=== PATIENT | female | born 2000 | race Caucasian/White ===

== ENCOUNTER 2024-10-28 20:39 | Emergency (ER) | payer OTHER, SELFPAY ==
[2024-10-28 20:41] VITALS: BP 154/87; PULSE 111; RESP 18; TEMP 36.3; O2SAT 98; BMI 33.5
[2024-10-28] MEDS: ONDANSETRON 4 MG/2 ML INJ IV (20:55)
[2024-10-28 21:23] LABS: Alanine Aminotransferase 30 IU/L (<35); Albumin 4.6 g/dL (3.5-5.0); Albumin Globulin Ratio 1.1 (1.0-2.8); Alkaline Phosphatase 61 U/L (38-126); Aspartate Aminotransferase 31 IU/L (14-36); BUN Creatinine Ratio 14.3 (6-22); Bilirubin Total 0.5 mg/dL (0.2-1.3); Blood Urea Nitrogen 10 mg/dL (7-17); Calcium 9.5 mg/dL (8.4-10.2); Carbon Dioxide 21 mmol/L (22-32); Chloride 104 mmol/L (98-107); Estimated Glomerular Filt Rate > 60 mL/min (>60); Globulin 4.2 g/dL (1.7-4.1); Glucose 97 mg/dL (70-100); HEMOLYSIS < 15 (0-50); Lipase 68 U/L (23-300); Potassium 4.1 mmol/L (3.4-5.1); Sodium 136 mmol/L (137-145); Total Protein 8.8 g/dL (6.3-8.2)
[2024-10-28 21:31] LABS: Add Manual Diff / Slide Review NO; Basophils Absolute Auto 100 /uL (0-100); Basophils Percent Auto 0.3 % (0-2); Eosinophils Absolute Auto 100 /uL (0-450); Eosinophils Percent Auto 0.5 % (2-4); Hematocrit 43.7 % (36-46); Hemoglobin 14.4 g/dL (12.0-16.0); Lymphocytes Absolute Auto 2000 /uL (1100-4500); Lymphocytes Percent Auto 12.6 % (25-40); Mean Corpuscular HGB Conc 32.9 % (30-36); Mean Corpuscular Hemoglobin 26.9 PG (26-34); Mean Corpuscular Volume 81.7 fL (80-100); Monocytes Absolute Auto 700 /uL (0-900); Monocytes Percent Auto 4.2 % (3-14); Neutrophils Absolute Auto 12900 /uL (1500-7000); Neutrophils Percent Auto 82.4 % (50-75); Platelet Count 397 X10^3/uL (150-400); Red Blood Cell Count 5.34 X10^6/uL (4.0-5.2); Red Cell Distribution Width 14.7 % (11.6-14.8); White Blood Cell Count 15.7 X10^3/uL (4.5-11.0)
[2024-10-28 22:22] LABS: Appearance Urine UA CLEAR; Bilirubin Urine UA 1+ (NEGATIVE); Color Urine UA YELLOW; Glucose Urine UA NEGATIVE (Negative); Ketones Urine UA TRACE (NEGATIVE); Leukocyte Esterase Urine UA NEGATIVE (NEGATIVE); Nitrite Urine UA NEGATIVE (Negative); Occult Blood Urine UA NEGATIVE (Negative); Protein Urine UA TRACE (Negative); Specific Gravity Urine UA 1.025 (1.000-1.035); Urobilinogen Urine UA 0.2 E.U./dL (0.2)
[2024-10-28 22:23] LABS: Ictotest Urine Negative (Negative)
[2024-10-28 22:25] LABS: Urine Volume 10mL (spun)
[2024-10-28 22:34] LABS: Bacteria Urine Few (2-10); Culture Indicated Urine Cult Not Indicated; Hyaline Casts Urine 0-1/LPF; RBC Urine None Seen (0-5/HPF); Squamous Epithelial Cell Urine 0-1 /HPF (0-5/HPF); WBC Urine None Seen (0-5/HPF)
--- NOTE | 2024-10-28 23:13 | DI.CT.S_ITS ---
PROCEDURE: CT ABDOMEN PELVIS W CON INDICATIONS: N/V/MIDEPIGASTRIC PN, HX ULCERATIVE COLITIS TECHNIQUE: After the administration of intravenous contrast, axial sections acquired from the lung bases to the pubic symphysis. Coronal and sagittal reformats were performed. For radiation dose reduction, the following was used: automated exposure control, adjustment of mA and/or kV according to patient size. COMPARISON: None. FINDINGS: Image quality: Diagnostic. Lower Chest: No significant findings. ABDOMEN: Liver: No solid mass. Gallbladder: No radiopaque gallstones or wall thickening. Biliary ducts: No biliary dilation. Pancreas: No ductal dilation. Spleen: Size is within normal limits. Adrenal Glands: No adrenal nodules. Kidneys and Ureters: No hydronephrosis. No solid mass. No complex renal cystic lesion which requires follow up. Stomach and Bowel: Normal colonic caliber, without significant wall thickening. Normal caliber appendix. Peritoneum: No abnormal intraperitoneal fluid. No free air. Ventral Wall: No significant ventral hernia. Abdominal Nodes: No retroperitoneal or mesenteric adenopathy by size criteria. Vessels: Aorta and inferior vena cava are normal in size. PELVIS: Pelvic Organs: Unremarkable. Bladder: No bladder wall thickening, accounting for underdistention. Pelvic Nodes: No enlarged lymph nodes. Miscellaneous: No inguinal hernias are seen. Bones: No aggressive osseous abnormality. IMPRESSION: No acute abdominopelvic process. Approved by: Edelmira Gann M.D.,Ph.D. on 10/29/2024 at 0:32
--- NOTE | 2024-10-28 23:15 | ED.ABDPAIN ---
HPI - Abdominal Pain General Chief Complaint: Abdominal Pain Stated Complaint: Abd Pain Time Seen by Provider: 10/28/24 21:06 Source: patient Mode of arrival: Ambulatory History of Present Illness HPI narrative: 24-year-old female presents by private vehicle from home for upper abdominal pain with nausea and vomiting. Patient has history of ulcerative colitis on mesalamine, followed by Dr. Magallon of [facility]. Patient states that 1 week ago her mesalamine dose was halved. Denies bloody diarrhea. Only other medication is Ozempic. On stable dose for several months. Related Data Home Medications Medication Instructions Recorded Confirmed mesalamine 500 mg capsule,extended 1,000 mg PO BID 02/11/23 02/11/23 release Previous Rx's Medication Instructions Recorded benzonatate 100 mg capsule 100 mg PO BID PRN cough #20 caps 02/11/23 dicyclomine 20 mg tablet 20 mg PO TID #30 tabs 10/29/24 ondansetron 4 mg disintegrating 4 mg PO Q8H PRN nausea and 10/29/24 tablet vomiting #30 tabs Allergies Allergy/AdvReac Type Severity Reaction Status Date / Time No Known Drug Allergies Allergy Unverified 02/11/23 10:12 Patient History Surgical History Status post tonsillectomy and adenoidectomy Family History Grandfather Hypothyroid Grandmother Ulcerative colitis Mother Ulcerative colitis Hypothyroid Grandfather Diverticulosis Social History Smoking Status: Never smoker Smoking Status: Never smoker Exam Initial Vital Signs Initial Vital Signs: Vital Signs Temperature 97.4 F L 10/28/24 20:41 Pulse Rate 111 H 10/28/24 20:41 Respiratory Rate 18 10/28/24 20:41 Blood Pressure 154/87 H 10/28/24 20:41 Pulse Oximetry 98 10/28/24 20:41 Oxygen Delivery Method Room Air 10/28/24 20:41 Const: Awake, alert, no acute distress, nontoxic appearing Cardiac: regular rate, regular rhythm RESP: unlabored, clear bilaterally, no wheezing GI: Soft, midepigastric tenderness to deep palpation without rebound or guarding Skin: Warm, Dry, intact, no rashes Neuro: AO x3, CN II-XII grossly intact, moves all extremities Course Orders Ordered: Discontinued Medications Ondansetron HCl (Ondansetron 4 Mg/2 Ml Inj) 4 mg IV NOW PRN PRN Reason: Nausea And Vomiting Last Admin: 10/28/24 20:55 Dose: 4 mg Documented By: ES Ondansetron HCl (Ondansetron 4 Mg Odt) 4 mg PO NOW PRN PRN Reason: Nausea And Vomiting Vital Signs Vital signs: Vital Signs - 8 hr 10/29/24 01:05 Pulse Rate 105 H Respiratory Rate 16 Blood Pressure 125/64 Pulse Oximetry 98 Oxygen Delivery Method Room Air MDM - Abdominal Pain Differential Diagnosis Differential diagnosis: Likely abdominal pain, constipation and diverticulitis Lab Data 10/28/24 20:55 10/28/24 20:55 Labs: Lab Results 10/28/24 10/28/24 Range/Units 20:55 22:03 WBC 15.7 H (4.5-11.0) X10^3/uL RBC 5.34 H (4.0-5.2) X10^6/uL Hgb 14.4 (12.0-16.0) g/dL Hct 43.7 (36-46) % MCV 81.7 (80-100) fL MCH 26.9 (26-34) PG MCHC 32.9 (30-36) % RDW 14.7 (11.6-14.8) % Plt Count 397 (150-400) X10^3/uL Neut % (Auto) 82.4 H (50-75) % Lymph % (Auto) 12.6 L (25-40) % Hidalgo % (Auto) 4.2 (3-14) % Eos % (Auto) 0.5 L (2-4) % Baso % (Auto) 0.3 (0-2) % Neut # (Auto) 18624 H (5735-7924) /uL Lymph # (Auto) 2000 (9774-5308) /uL Hidalgo # (Auto) 700 (0-900) /uL Eos # (Auto) 100 (0-450) /uL Baso # (Auto) 100 (0-100) /uL Sodium 136 L (137-145) mmol/L Potassium 4.1 (3.4-5.1) mmol/L Chloride 104 (98-107) mmol/L Carbon Dioxide 21 L (22-32) mmol/L BUN 10 (7-17) mg/dL Creatinine 0.70 (0.52-1.04) mg/dL Estimated GFR > 60 (>60) mL/min BUN/Creatinine Ratio 14.3 (6-22) Glucose 97 (70-100) mg/dL Calcium 9.5 (8.4-10.2) mg/dL Total Bilirubin 0.5 (0.2-1.3) mg/dL AST 31 (14-36) IU/L ALT 30 (<35) IU/L Alkaline Phosphatase 61 (38-126) U/L Total Protein 8.8 H (6.3-8.2) g/dL Albumin 4.6 (3.5-5.0) g/dL Globulin 4.2 H (1.7-4.1) g/dL Albumin/Globulin Ratio 1.1 (1.0-2.8) Lipase 68 (23-300) U/L Urine Color Yellow Urine Appearance Clear Urine pH 6.0 (4.5-8.0) Ur Specific Isabella 1.025 (1.000-1.035) Urine Protein Trace H (Negative) Urine Glucose (UA) Negative (Negative) g/dL Urine Ketones Trace H (NEGATIVE) Urine Occult Blood Negative (Negative) Urine Nitrate Negative (Negative) Urine Bilirubin 1+ H (NEGATIVE) Ur Bilirubin Confirm Negative (Negative) Urine Urobilinogen 0.2 (0.2) E.U./dL Ur Leukocyte Esterase Negative (NEGATIVE) Urine RBC None seen (0-5/HPF) Urine WBC None seen (0-5/HPF) Ur Squamous Epith Cells 0-1 /hpf (0-5/HPF) Urine Bacteria Few (2-10) H (None) Hyaline Casts 0-1/lpf (None) Ur Culture Indicated? Cult not indicated Vol Urine Centrifuged 10ml (spun) Point of care testing: Point of Care Testing Test Results Negative Urine Dip Bedside Urine Glucose Negative Bedside Urine Bilirubin + 1 Bedside Urine Ketone +/- 5 Urine Specific Isabella 1.025 Bedside Urine Occult Blood - Negative Bedside Urine pH 6 Bedside Urine Protein +/- 15 Bedside Urine Urobilinogen - Negative Bedside Urine Nitrite - Negative Bedside Urine Leukocytes - Negative Esterase Imaging Data CT scan - abdomen/pelvis: Radiologist's Impression: PROCEDURE: CT ABDOMEN PELVIS W CON INDICATIONS: N/V/MIDEPIGASTRIC PN, HX ULCERATIVE COLITIS TECHNIQUE: After the administration of intravenous contrast, axial sections acquired from the lung bases to the pubic symphysis. Coronal and sagittal reformats were performed. For radiation dose reduction, the following was used: automated exposure control, adjustment of mA and/or kV according to patient size. COMPARISON: None. FINDINGS: Image quality: Diagnostic. Lower Chest: No significant findings. ABDOMEN: Liver: No solid mass. Gallbladder: No radiopaque gallstones or wall thickening. Biliary ducts: No biliary dilation. Pancreas: No ductal dilation. Spleen: Size is within normal limits. Adrenal Glands: No adrenal nodules. Kidneys and Ureters: No hydronephrosis. No solid mass. No complex renal cystic lesion which requires follow up. Stomach and Bowel: Normal colonic caliber, without significant wall thickening. Normal caliber appendix. Peritoneum: No abnormal intraperitoneal fluid. No free air. Ventral Wall: No significant ventral hernia. Abdominal Nodes: No retroperitoneal or mesenteric adenopathy by size criteria. Vessels: Aorta and inferior vena cava are normal in size. PELVIS: Pelvic Organs: Unremarkable. Bladder: No bladder wall thickening, accounting for underdistention. Pelvic Nodes: No enlarged lymph nodes. Miscellaneous: No inguinal hernias are seen. Bones: No aggressive osseous abnormality. IMPRESSION: No acute abdominopelvic process. Approved by: Edelmira Gann M.D.,Ph.D. on 10/29/2024 at 0:32 MDM Narrative Medical decision making narrative: Well-appearing patient with abdominal pain. History of ulcerative colitis and recently had dose decrease by her GI doctor. Abdomen is soft but she was tender in the upper quadrants of her abdomen. No rebound or guarding. Laboratory work, CT imaging ordered. Patient declined pain medications. Laboratory work showed WBC count of 15.7, possibly reactive due to vomiting. Hemoglobin 14.4, platelet count 397, sodium 136, potassium 4.1, creatinine 0.7, normal liver enzymes. CT of the abdomen and pelvis did not show any findings of ulcerative colitis flare, no other acute findings identified. Patient and family at bedside informed of lab and imaging findings. They were counseled to call her GI doctor if she continues to experience pains, or if she continues to feel significant discomfort she should come back in 24-48 hours for repeat ER assessment. Discharge Plan Departure Patient Disposition: Home Clinical Impression: Abdominal pain, Nausea & vomiting Instructions: DI for Abdominal Pain-Adult Activity Restrictions/Additional Instructions: Your CT today did not show any signs of an ulcerative colitis flare. I do not know the exact cause of your abdominal pain or symptoms today. It is possible that this is a GI bug. Antinausea medications and antispasm medications for your stomach has been sent to your pharmacy. You may also take Tylenol and ibuprofen for pain as needed at home. If you do not notice improvement in your symptoms or they worsen please come back for repeat evaluation. Otherwise I recommend following up with your GI doctor as soon as possible. Prescriptions: New ondansetron 4 mg tablet,disintegrating 4 mg PO Q8H PRN (Reason: nausea and vomiting) Qty: 30 0RF dicyclomine 20 mg tablet 20 mg PO TID Qty: 30 0RF No Action benzonatate 100 mg capsule 100 mg PO BID PRN (Reason: cough) Qty: 20 0RF mesalamine 500 mg capsule, extended release 1,000 mg PO BID Referrals: Antonio Marmolejo MD [Primary Care Provider] - Stand Alone Forms: Patient Portal/API/Survey
[2024-10-29 01:05] VITALS: BP 125/64; PULSE 105; RESP 16; O2SAT 98
== END 2024-10-29 01:06 | disposition home or self-care (01) ==
PROVIDERS: Emergency Provider Emergency Medicine; PCP Family Medicine
DX: R10.10 Upper abdominal pain, unspecified (principal); R11.2 Nausea with vomiting, unspecified; K51.90 Ulcerative colitis, unspecified, without complications
CPT/HCPCS: 36415; 74177; 80053; 81001; 81003; 81025; 83690; 85025; 96374; 99284; J2405; Q9967

== ENCOUNTER → 2025-04-27 15:00 | Outpatient (CLI) | payer OTHER, SELFPAY ==
--- NOTE | 2025-04-27 15:03 | DI.RAD.S_ITS ---
PROCEDURE: XR LUMBAR SPINE 2-3V INDICATIONS: BACK PAIN TECHNIQUE: 3 views of the lumbar spine were acquired. COMPARISON: None. FINDINGS: Lumbar spine curvature and alignment: Normal. Bones: There are no osseous abnormalities. Disc spaces: Mild L5-S1 degenerative disc and facet disease Intervertebral foramen: Grossly normal in width. Soft tissues: No soft tissue swelling, calcification or mass. IMPRESSION: Mild L5-S1 degenerative disc and facet disease Dictated by: Reinaldo Kevin M.D. on 04/28/2025 at 9:50 Approved by: Reinaldo Kevin M.D. on 04/28/2025 at 9:51
== END ==
LOC: RAD 15:02
PROVIDERS: PCP Family Medicine; Referring Provider Family Medicine; Visit Provider Family Medicine
DX: M51.379 Other intervertebral disc degeneration, lumbosacral region without mention of lumbar back pain or lower extremity pain (principal); M47.817 Spondylosis without myelopathy or radiculopathy, lumbosacral region; M54.50 Low back pain, unspecified
CPT/HCPCS: 72100